=== PATIENT | male | born 1985 ===

== ENCOUNTER 2017-01-09 06:57 | Inpatient (IN) | payer OTHER ==
[~2017-01-09] VITALS: Ht 162.6 cm; Wt 84.4 kg
[2017-01-09] VITALS (17 sets, daily range): BP systolic 113–149; BP diastolic 67–94
[~2017-01-09 06:57] MED LIST: IBUPROFEN600 MG ORAL
[2017-01-09] MEDS ORDERED: Thrombin 5000 units TOPIC ONE (07:38)
[2017-01-09] MEDS ORDERED: Bupivacaine w/Epi 0.5% 30ml Vial INJ ONE (07:39)
[2017-01-09] MEDS ORDERED: Bacitracin 50000 Units Vial ONE ×2 (07:39→10:28)
--- NOTE | 2017-01-09 08:37 | Pre-Procedure Note/Attestation ---
Pre-Procedure Note/Attestation Complete Prior to Procedure Planned Procedure: not applicable Procedure Narrative: For L4-5 Anterior Lumbar Decompression and Fusion. Indications for Procedure Pre-Operative Diagnosis: Disc Herniation with instability L4-5 Attestation I attest that I discussed the nature of the procedure; its benefits; risks and complications; and alternatives (and the risks and benefits of such alternatives ), prior to the procedure, with the patient (or the patient's legal labor relations representative). I attest that, if there was a reasonable possibility of needing a blood transfusion, the patient (or the patient's legal labor relations representative) was given the [facility] standardized written summary, pursuant to the [place] Blood Safety Act ([place] Health and Safety Code # 1645, as amended). I attest that I re-evaluated the patient just prior to the surgery and that there has been no change in the patient's H&P, except as documented below: RUSSELL POWERS Jan 09, 2017 08:37
[2017-01-09] MEDS ORDERED: LR 1000ml ONE (09:00)
[2017-01-09] MEDS ORDERED: Midazolam 2mg/2ml Inj ONE (09:00)
[2017-01-09] MEDS ORDERED: Zemuron 50mg/5ml Inj IV ONE (09:00)
[2017-01-09] MEDS ORDERED: Propofol 10mg/ml 20ml IV ONE (09:00)
[2017-01-09] MEDS ORDERED: fentaNYL 100 mcg/2 mL IV ONE (09:00)
[2017-01-09] MEDS ORDERED: Sterile Water Irrig 1000ml IRRIG ONE (09:00)
[2017-01-09] MEDS ORDERED: Heparin 5000 units/ml inj ONE (09:18)
[2017-01-09] MEDS ORDERED: NS Irrig 1000ml IRRIG ONE (09:30)
[2017-01-09] MEDS ORDERED: LR 1000ml 1,000 ML IVLG SCH (09:50)
--- NOTE | 2017-01-09 09:56 | Immediate Post-Op Evaluation ---
Immediate Post-Op Evalulation Immediate Post-Op Evalulation Procedure: ALIF L4-5 Date of Evaluation: Jan 09, 2017 Time of Evaluation: 11:25 IV Fluids: 1100 Estimated Blood Loss: 75 Blood Pressure Systolic: 137 Blood Pressure Diastolic: 74 Pulse Rate: 93 Respiratory Rate: 17 O2 Sat by Pulse Oximetry: 97 Temperature (Fahrenheit): 98.4 Pain Score (1-10): 0 Nausea: No Vomiting: No Complications No complication Patient Status: reacts, patent, extubated, none Hydration Status: adequate Drug: Ancef Given Within 1 Hr of Incision: Yes Time Given: 09:15 HELEN CASTANEDA M.D. Jan 09, 2017 09:56
--- NOTE | 2017-01-09 09:56 | Anethesia Preoperative Eval ---
Anesthesia Pre-op PMH/ROS General Date of Evaluation: Jan 09, 2017 Time of Evaluation: 08:50 Anesthesiologist: Archie ASA Score: ASA 1 Mallampati Score Class I : Soft palate, uvula, fauces, pillars visible Class II: Soft palate, uvula, fauces visible Class III: Soft palate, base of uvula visible Class IV: Only hard plate visible Mallampati Classification: Class III Surgeon: Jonel Diagnosis: Disc collapse, instabililty L4-5 Surgical Procedure: ALIF L4-5 Family History: no anesthesia problems Allergies: Coded Allergies: No Known Allergies (Unverified , 01/06/17) Medications: see eMAR Past Medical History Cardiovascular: Denies: CAD, HTN, NE, arrhythmia, other, valve dz Pulmonary: Denies: COPD, GAURAV, asthma, other Gastrointestinal/Genitourinary: Denies: CRI, ESRD, GERD, other Neurologic/Psychiatric: Denies: CVA, TIA, dementia, depression/anxiety, other Endocrine: Denies: DM, hypothyroidism, other, steroids HEENT: Denies: [place] (L), [place] (R), cataract (L), cataract (R), glaucoma, other Hematology/Immune: Denies: DVT, anemia, bleeding disorder, other Musculoskeletal/Integumentary: Denies: DDD, DJD, OA, RA, edema, other PMH Narrative: Denies significant PMH PSxH Narrative: Back surgery Anesthesia Pre-op Phys. Exam Physician Exam Last Vital Signs Date Time Temp Pulse Resp B/P Pulse Ox O2 Delivery O2 Flow Rate FiO2 01/09/17 07:40 97.0 69 18 122/69 97 Room Air Constitutional: NAD Neurologic: CN 2-12 intact Cardiovascular: RRR, no M/R/G Respiratory: CTA Gastrointestinal: S/NT/ND Airway Exam Mallampati Score: Class III MO: full ROM: full Teeth: intact Anesthesia Pre-op A/P Labs WNL Studies Pre-op Studies: EKG - SR, RBBB Risk Assessment & Plan Assessment: Healthy male for ALIF Plan: GETA, [place] scope intubation Status Change Before Surgery: No Pre-Antibiotics Drug: Ancef Given Within 1 Hr of Incision: Yes Time Given: 09:15 HELEN CASTANEDA M.D. Jan 09, 2017 09:56
[2017-01-09] MEDS ORDERED: LORazepam Inj 2mg/ml 1ml IV PRN (10:00)
[2017-01-09] MEDS ORDERED: Meperidine 25mg/ml Inj IV PRN (10:00)
[2017-01-09] MEDS ORDERED: Labetalol 5mg/ml 20ml vial IV PRN (10:00)
[2017-01-09] MEDS ORDERED: Hydromorphone 0.5mg/0.5ml inj IVP PRN (10:00)
[2017-01-09] MEDS ORDERED: LR 1000ml 1,000 ML IV SCH (10:00)
--- NOTE | 2017-01-09 11:10 | Operative Note - PDOC ---
Operative Note Operative Note Pre-op Diagnosis: Disc Herniation with instability L4-5 Procedure: L4-5 Anterior Lumbar Decompression and Fusion Post-op Diagnosis: same as pre-op Operative Findings: consistent w/pre-op dx studies Surgeon: Jonel Cook House Supervisor: MICHAEL Powers Additional Surgeons: Catalan - Vascular Access Anesthesiologist: Archie Specimen: yes Complications: none Condition: stable Estimated Blood Loss: minimal Drains: none Implant(s) used?: Yes - Thee InFix device, Medium, 10 mm. 3+3 degree, Thee DBM 5cc. RUSSELL POWERS Jan 09, 2017 11:10
--- NOTE | 2017-01-09 11:21 | 48 Hour Post Anesthesia Eval ---
Post Anesthesia Evaluation Procedure: ALIF L4-5 Date of Evaluation: Jan 09, 2017 Time of Evaluation: 09:15 Blood Pressure Systolic: 139 0: 80 Pulse Rate: 92 Respiratory Rate: 16 O2 Sat by Pulse Oximetry: 97 Airway: patent Nausea: No Vomiting: No Pain Intensity: 5 If pain is > 6 Comment: Patient using QUARTER SEAMER and unable to urinate. Order for straight cath given PRN Hydration Status: adequate Cardiopulmonary Status: Stable Mental Status/LOC: patient returned to baseline Follow-up Care/Observations: As per surgery Post-Anesthesia Complications: No anesthetic complication Follow-up care needed: N/A HELEN CASTANEDA M.D. Jan 09, 2017 11:21
[2017-01-09] MEDS ORDERED: LORazepam 1mg tab ORAL PRN (12:00)
[2017-01-09] MEDS ORDERED: DiphenhydrAMINE 50mg/ml Inj IVP PRN (12:00)
[2017-01-09] MEDS ORDERED: Rate Change PCA 1 Each MISC PRN (12:00)
[2017-01-09] MEDS ORDERED: Naloxone 0.4mg/ml Inj IVP PRN (12:00)
[2017-01-09] MEDS: PCA HYDROmorphone 1mg/ml 30 ML IV PRN (12:08)
[2017-01-09] MEDS ORDERED: Acetaminophen 650 MG SUPP RECTAL PRN (13:00)
[2017-01-09] MEDS: D5 1/2NS w/KCl 20mEq 1,000 ML IV SCH (14:30)
[2017-01-09] MEDS: PCA shift volume MISC SCH ×2 (15:09→23:52)
[2017-01-09] MEDS: ceFAZolin sod 1 GM in D5W 55 ML IV SCH (16:54)
--- NOTE | 2017-01-09 16:58 | Diagnostic Imaging Report ---
Indication: PAIN, intraoperative Technique: Digital intraoperative images Comparison: None Findings: Localizer image demonstrates a surgical tool anterior to what is presumably the L4-5 disc. Subsequent images document placement of a disc prosthesis at L4-5. Impression: Intraoperative imaging, as described
--- NOTE | 2017-01-09 19:28 | Operative Note - Dictated ---
DATE OF OPERATION: 01/09/2017 FACILITY: [facility] SURGEON: Dru Remy M.D. ASSISTANTS: Margo Johnson, vascular approach, Dr. Catalan, co-surgeon. ANESTHESIA: Dr. Núñez, general endotracheal with arterial blood pressure monitoring and use of pulse oximetry. PREOPERATIVE DIAGNOSIS: Discogenic disease at L4-L5 with loss of disc height. Evidence of segmental instability and a left-sided posterior herniation causing severe compression of the sac and exiting nerve root in lateral recess and foramen, marked degeneration of the disc and loss of disc height. POSTOPERATIVE DIAGNOSIS: Discogenic disease at L4-L5 with loss of disc height. Evidence of segmental instability and a left-sided posterior herniation causing severe compression of the sac and exiting nerve root in lateral recess and foramen, marked degeneration of the disc and loss of disc height. OPERATIVE PROCEDURE: Left pararectus retroperitoneal approach to the lumbar spine by Dr. Catalan with vessel mobilization and retraction using a table fixed retractor and reverse tip blades. An anterior annulotomy, nuclear diskectomy and partial vertebrectomy was performed with a bilateral neural foraminotomy and micro neurolysis. An Open-reduction and internal fixation at the 4-5 level was done using an infix cage that was medium end-plate size with 10 mm of height and 3+ 3 degrees of lordosis built into the endplates with fusion with bone protein and autogenous bone harvested during the decompression portion of the procedure. There was pulse oximetry for vascular safety throughout the case. An image intensifier was used as well for cage placement and verification of the level. The patient was prepped and draped supine on the operating table. Bolster was placed in lumbar region. A 3-inch left pararectus incision was made. Incision was carried down through skin and subcutaneous tissue. The rectus was mobilized. The posterior sheath was followed to the retroperitoneal space. The arterial and venous structures anterior to the spine were mobilized and retracted by Dr. Catalan using a table fixed frame and north-south and East-West blades. The center was marked and an anterior annulotomy was done with a #10 blade. The nuclear disc substance and cartilaginous endplate was then sequentially removed from front to back using larger to smaller angled and straight pituitaries, Kerrisons and rongeurs. Distraction was created using a removable Calli tree shaped lordotic distractor, placed side to side, beginning at 8 mm and going to 12 mm. The dissection was carried down to the PLL and posterior disc anulus, which was released with the small angled curettes. The extruded portion of the disc left side of the canal was identified and was retrieved after releasing all the posterior attachments at the posterior vertebral body of L4 and L5. The foramen was cleared and neurolysis performed. The space was templated out to 10 millimeters with a medium size foot print. A 10 mm height infix was then inserted on its handle with 3+ 3 degrees of lordosis in each endplate. Side struts were then tapped into place and the position was checked. The handle was removed. Position was again checked and the cage was locked into place. It was well centered on AP and also on lateral. The space between the endplates was filled with bone protein and autogenous bone. The layers were then closed including the anterior posterior rectus sheath, the subcutaneous and skin. The patient was placed in a bulky compression dressing and returned to recovery room in good condition. Dru Remy M.D. DR: BHARATI JOB#: [id number] CC:
[2017-01-10] VITALS: BP 129/72
[2017-01-10] MEDS: D5 1/2NS w/KCl 20mEq 1,000 ML IV SCH ×3 (00:13→20:00)
[2017-01-10] MEDS: ceFAZolin sod 1 GM in D5W 55 ML IV SCH ×2 (01:20→08:29)
[2017-01-10 04:00] VITALS: BP 122/68
[2017-01-10] MEDS: PCA shift volume MISC SCH ×3 (07:25→23:27)
[2017-01-10 08:09] VITALS: BP 125/70
[2017-01-10] MEDS ORDERED: Influenza Virus Vaccine 0.5ml IM ONE (09:00)
--- NOTE | 2017-01-10 09:32 | History & Physical ---
History and Physical History & Physicial 3-6 HP reviewed care noted d/w RN will follow up TERENCE ACHARYA Jan 10, 2017 09:32
--- NOTE | 2017-01-10 09:37 | General Progress Note ---
Assessment/Plan Assessment/Plan Disc Herniation with instability L4-5 L4-5 Anterior Lumbar Decompression and Fusion PLAN 1. incentive spirometry 2. SCD 3. PT evaluation and therapy 4. Hydration 5. Pain management 6. discharge once stable with outpatient follow up 7. NPO for now Subjective Allergies: Coded Allergies: No Known Allergies (Unverified , 01/06/17) Subjective care noted and reviewed has pain Objective Last 24 Hour Vital Signs Date Time Temp Pulse Resp B/P Pulse Ox O2 Delivery O2 Flow Rate FiO2 01/10/17 08:09 99.1 108 20 125/70 99 Room Air 01/10/17 08:00 18 01/10/17 04:00 98.2 101 18 122/68 99 Nasal Cannula 3.0 01/10/17 04:00 18 01/10/17 00:00 18 01/10/17 00:00 98.4 99 18 129/72 100 Nasal Cannula 3.0 01/09/17 20:00 99.1 102 14 113/86 96 Nasal Cannula 3.0 01/09/17 20:00 16 01/09/17 16:00 16 01/09/17 16:00 99.7 114 16 133/94 98 Nasal Cannula 3.0 01/09/17 14:45 97.5 105 18 126/68 98 Nasal Cannula 3.0 01/09/17 14:15 97.2 100 20 128/67 94 Nasal Cannula 3.0 01/09/17 13:45 97.5 97 20 137/76 96 Nasal Cannula 3.0 01/09/17 13:30 97.7 88 22 133/74 98 Nasal Cannula 3.0 01/09/17 13:15 97.9 96 20 126/68 97 Nasal Cannula 3.0 01/09/17 13:00 98.1 98 22 133/79 99 Nasal Cannula 3.0 01/09/17 13:00 98.6 01/09/17 12:45 97.7 100 22 135/79 100 Nasal Cannula 3.0 01/09/17 12:30 17 01/09/17 12:20 98.6 99 25 149/73 98 Nasal Cannula 3.0 01/09/17 12:15 17 01/09/17 12:08 16 01/09/17 12:05 89 16 144/71 100 Nasal Cannula 3.0 01/09/17 12:04 98.4 01/09/17 12:04 98.4 01/09/17 11:50 96 13 136/80 99 Simple Mask 6.0 01/09/17 11:35 95 14 127/87 99 Simple Mask 6.0 01/09/17 11:23 89 16 139/87 97 Simple Mask 6.0 01/09/17 11:21 92 16 97 01/09/17 11:18 91 16 139/80 97 Simple Mask 6.0 01/09/17 11:15 93 17 97 01/09/17 11:13 98.4 91 17 137/74 97 Simple Mask 6.0 Intake and Output 01/09/17 01/10/17 19:00 07:00 Intake Total 1500 ml Output Total 275 ml 800 ml Balance 1225 ml -800 ml Intake IV Total 1500 ml Output Urine Total 200 ml 800 ml Estimated Blood Loss 75 ml # Voids 2 4 Height (Feet): 5 Height (Inches): 4.00 Weight (Pounds): 186 Objective WDWN NAD clear breath sounds bilaterally without rhonchi or wheeze [id number] without MRG tender no HSM no CCE nonfocal TERENCE ACHARYA Jan 10, 2017 09:37
[2017-01-10] MEDS: PCA HYDROmorphone 1mg/ml 30 ML IV PRN (12:02)
[2017-01-10 12:35] VITALS: BP 111/74
[2017-01-10 16:10] VITALS: BP 123/72
[2017-01-10 20:00] VITALS: BP 126/68
--- NOTE | 2017-01-10 22:28 | Operative Note - Dictated ---
DATE OF OPERATION: 01/09/2017 VASCULAR SURGEON: Robert Catalan M.D. SPINE SURGEON: Dru Remy M.D. PREOPERATIVE DIAGNOSIS: Degenerative disk disease. POSTOPERATIVE DIAGNOSIS: Degenerative disk disease. PROCEDURE PERFORMED: Anterior retroperitoneal exposure of L4-L5 vertebral interspace. INDICATIONS: The patient is a very pleasant gentleman who was seen in my office prior to surgery. He has been scheduled for anterior fusion L5. He has no prior intraabdominal surgery and a history of deep venous thrombosis or bleeding complications with it. The patient has been made aware of the risks of surgery including possibility of blood transfusion, possible severe vascular injury, possible need for blood transfusion, and possible deep venous thrombosis. DESCRIPTION OF FINDINGS: A low vertical midline incision was used. Left retroperitoneal approach was used. There was no peritoneal or ureteral violation. There was no vascular injury. Exposure of L4-L5 was obtained by retractile of the left iliac vessels towards the patient's right. Fluoroscopy was used to confirm the appropriate level. On completion, the peritoneum and ureter were intact. Iliac vessels were intact. There was no vascular injury. Blood loss was approximately 50 to 100 mL. Complications were none. Palpable pedal pulses and normal pulse oximetry on the left leg on completion. DESCRIPTION OF PROCEDURE: The patient was taken to the operating room. General anesthesia was used. IV antibiotics were given. The patient's abdomen prepped and draped. Appropriate time-out procedures were taken. A vertical midline incision made infraumbilically. The anterior fascia was incised longitudinally in the midline. A plane identified posterior to the left rectus abdominis and developed posterolaterally to patient's left. The retroperitoneal space was bluntly entered below the arcuate line. The peritoneum and ureter are mobilized towards the patient's right exposing the left common iliac vessels. Lateral division of the internal oblique fascia was then performed laterally to allow for adequate exposure. The dissection was carried on the left side of the left common iliac vessels. Overlying lymphatics were ligated with vascular clips and divided. The iliolumbar vein was not actually visualized as it appeared to come out at the approximate level L5-S1. The L4 segmental artery and vein were identified and ligated with vascular clips and divided and this allowed us to mobilize the left iliac vessels towards the patient's right exposing anterior surface of the L4-L5. The Omni retractor was set in place and then Kumari blades were actually used to gain lateral exposure. Fluoroscopy was then used to confirm the appropriate level and then instrumentation fusion performed at L4-L5 dictated separately. On completion, retractor gently removed. The peritoneum and the ureter were intact. Iliac vessels were intact. Anterior fascia was closed using #1 PDS in running fashion. Skin and subcutaneous tissue was closed using 3-0 Vicryl and 4-0 Monocryl in a running subcuticular closure technique. ESTIMATED BLOOD LOSS: Less than 100 mL. COMPLICATIONS: None. Robert Catalan M.D. DR: LUCIANO JOB#: [id number] CC: LYNNE
[2017-01-11] VITALS: BP 129/76
[2017-01-11 04:00] VITALS: BP 122/84
[2017-01-11] MEDS: D5 1/2NS w/KCl 20mEq 1,000 ML IV SCH ×2 (05:08→16:38)
[2017-01-11] MEDS: PCA shift volume MISC SCH ×3 (07:07→23:00)
--- NOTE | 2017-01-11 08:23 | General Progress Note ---
Assessment/Plan Assessment/Plan Disc Herniation with instability L4-5 L4-5 Anterior Lumbar Decompression and Fusion PLAN 1. incentive spirometry 2. SCD 3. PT evaluation and therapy 4. Hydration 5. Pain management 6. discharge once stable with outpatient follow up 7. clear liquids 8. remove muhammad Subjective Allergies: Coded Allergies: No Known Allergies (Unverified , 01/06/17) Subjective care noted and reviewed has pain muhammad replaced due to urinary retention passing gas Objective Last 24 Hour Vital Signs Date Time Temp Pulse Resp B/P Pulse Ox O2 Delivery O2 Flow Rate FiO2 01/11/17 08:03 18 01/11/17 04:00 100.0 20 122/84 95 Room Air 01/11/17 04:00 19 01/11/17 00:00 18 01/11/17 00:00 100.4 116 18 129/76 98 Room Air 01/10/17 20:00 98.6 102 19 126/68 100 Nasal Cannula 3.0 01/10/17 20:00 18 01/10/17 16:10 98.6 98 18 123/72 99 Nasal Cannula 3.0 01/10/17 16:00 20 01/10/17 12:35 99.3 94 20 111/74 97 Room Air 01/10/17 12:32 99.3 01/10/17 12:00 20 Intake and Output 01/10/17 01/11/17 19:00 07:00 Intake Total 1100 ml 900 ml Output Total 1000 ml 1000 ml Balance 100 ml -100 ml Intake Oral 100 ml IV Total 1100 ml 800 ml Output Urine Total 1000 ml 1000 ml Height (Feet): 5 Height (Inches): 4.00 Weight (Pounds): 186 Objective WDWN NAD clear breath sounds bilaterally without rhonchi or wheeze [id number] without MRG tenderness improved good BS no HSM no CCE nonfocal TERENCE ACHARYA Jan 11, 2017 08:23
[2017-01-11 08:44] VITALS: BP 130/61
[2017-01-11] MEDS ORDERED: Naloxone 0.4mg/ml Inj IVP PRN ×2 (09:45→12:00)
[2017-01-11] MEDS ORDERED: Rate Change PCA 1 Each MISC PRN (09:45)
[2017-01-11] MEDS ORDERED: DiphenhydrAMINE 50mg/ml Inj IVP PRN (10:00)
[2017-01-11] MEDS ORDERED: PCA HYDROmorphone 1mg/ml 30 ML IV PRN (10:00)
[2017-01-11] MEDS ORDERED: LORazepam 1mg tab ORAL PRN (10:00)
[2017-01-11 12:00] VITALS: BP 122/70
[2017-01-11] MEDS ORDERED: Norco 7.5mg/325mg tab ORAL PRN ×2 (12:00)
[2017-01-11] MEDS ORDERED: HYDROmorphone 1mg/ml Carpuject SUBQ PRN (12:00)
[2017-01-11] MEDS ORDERED: HYDROmorphone 1mg/ml Carpuject IVP PRN (12:00)
[2017-01-11] MEDS ORDERED: Norco 5mg/325mg tab ORAL PRN (12:00)
[2017-01-11 16:00] VITALS: BP 139/86
[2017-01-11 20:00] VITALS: BP 130/83
[2017-01-12] VITALS: BP 129/78
[2017-01-12] MEDS: D5 1/2NS w/KCl 20mEq 1,000 ML IV SCH ×3 (02:35→22:07)
[2017-01-12 04:00] VITALS: BP 125/72
[2017-01-12] MEDS: PCA shift volume MISC SCH ×3 (07:21→23:21)
[2017-01-12 08:00] VITALS: BP 133/63
--- NOTE | 2017-01-12 09:00 | General Progress Note ---
Assessment/Plan Assessment/Plan Disc Herniation with instability L4-5 L4-5 Anterior Lumbar Decompression and Fusion PLAN 1. incentive spirometry 2. SCD 3. PT evaluation and therapy 4. Hydration 5. Pain management 6. discharge once stable with outpatient follow up 7. advance diet 8. muhammad removed Subjective Allergies: Coded Allergies: No Known Allergies (Unverified , 01/06/17) Subjective care noted and reviewed has pain not yet controlled muhammad out tolerating diet Objective Last 24 Hour Vital Signs Date Time Temp Pulse Resp B/P Pulse Ox O2 Delivery O2 Flow Rate FiO2 01/12/17 08:00 18 01/12/17 04:00 100.6 83 21 125/72 99 Nasal Cannula 01/12/17 04:00 18 01/12/17 00:00 98.1 85 19 129/78 99 Nasal Cannula 01/11/17 20:00 16 01/11/17 20:00 98.2 99 18 130/83 93 Nasal Cannula 3.0 01/11/17 16:55 18 01/11/17 16:00 98.2 103 18 139/86 95 Nasal Cannula 2.0 01/11/17 12:00 18 01/11/17 12:00 97.0 98 18 122/70 99 Room Air Intake and Output 01/11/17 01/12/17 19:00 07:00 Intake Total 2560 ml 1650 ml Output Total 1500 ml Balance 1060 ml 1650 ml Intake Oral 1360 ml 600 ml IV Total 1200 ml 1050 ml Output Urine Total 1500 ml # Voids 103 3 Height (Feet): 5 Height (Inches): 4.00 Weight (Pounds): 186 Objective WDWN NAD clear breath sounds bilaterally without rhonchi or wheeze [id number] without MRG good BS no HSM no CCE nonfocal TERENCE ACHARYA Jan 12, 2017 09:00
[2017-01-12 11:15] VITALS: BP 112/76
[2017-01-12 16:06] VITALS: BP 128/93
[2017-01-12 20:38] VITALS: BP 140/85
[2017-01-13] VITALS: BP 134/74
[2017-01-13 04:00] VITALS: BP 123/74
[2017-01-13] MEDS: PCA shift volume MISC SCH (07:02)
[2017-01-13 08:30] VITALS: BP 116/75
[2017-01-13] MEDS ORDERED: Milk of Magnesia 30ml Ud ORAL PRN (08:45)
[2017-01-13] MEDS ORDERED: HYDROmorphone 1mg/ml Carpuject SUBQ PRN (10:00)
[2017-01-13] MEDS ORDERED: HYDROmorphone 1mg/ml Carpuject IVP PRN (10:00)
[2017-01-13] MEDS ORDERED: Norco 5mg/325mg tab ORAL PRN (10:00)
[2017-01-13] MEDS ORDERED: Norco 7.5mg/325mg tab ORAL PRN ×2 (10:00)
[2017-01-13 12:00] VITALS: BP 120/68
[2017-01-13] MEDS ORDERED: NORCO 10-325 T1 EACH ORAL (16:50)
[2017-01-13] MEDS ORDERED: Tubing IV Secondary IV ONE (17:59)
--- NOTE | 2017-01-16 14:25 | Discharge Summary ---
Discharge Summary Hospital Course Date of Admission Jan 09, 2017 at 06:57 Date of Discharge Jan 13, 2017 at 18:00 Admitting Diagnosis Disc Herniation with instability L4-5 Reason for Hospitalization: elective surgery HPI Ugo Dasilva is a 32 year old male who was admitted on Jan 09, 2017 at 06:57 for Disc Collapse Instability L4-[address] Dania Lawrence Procedures s/p L4-5 Anterior Lumbar Decompression and Fusion. on 01/09/[address] Jonel M.D. Hospital Course s/p surgery ALDF L4-5 course of recovery uneventful incentive spirometry, taught how to use SCD, PT evaluation and therapy fall precautions Pain management IVF fro hydration DISCHARGE DIAGNOSIS: Disc Herniation with instability L4-5 s/p L4-5 Anterior Lumbar Decompression and Fusion postoperative pain Discharge Medications Continued Medications: Hydrocodone Bit/Acetaminophen 10-325* ([place] 10-325*) 1 Each Tablet 1 TAB ORAL Q6-8 HOURS PRN for For Pain, #60 TAB 0 Refills PRN PAIN Discontinued Medications: Ibuprofen* (Motrin*) 600 Mg Tablet 800 MG ORAL Q8H PRN for For Pain, #30 TAB 0 Refills Discharge Condition Upon Discharge: stable Discharge Disposition Patient was discharged to Discharge Diagnoses: Discharge Instructions Discharge Instructions Special Instructions I have been assigned to complete a D/C Summary on this account. I was not involved in the patient management Rosita White NP ([place]) Jan 16, 2017 14:25
--- NOTE | 2017-02-17 09:13 | General Progress Note ---
Assessment/Plan Assessment/Plan Disc Herniation with instability L4-5 L4-5 Anterior Lumbar Decompression and Fusion PLAN 1. dc today 2. SCD 3. PT evaluation and therapy 4. post op care 5. Pain management 6. discharge once stable with outpatient follow up 7. advance diet Subjective Date patient seen: Jan 13, 2017 Allergies: Coded Allergies: No Known Allergies (Unverified , 01/06/17) Subjective stable Objective reviewed Height (Feet): 5 Height (Inches): 4.00 Weight (Pounds): 186 Objective WDWN NAD clear breath sounds bilaterally without rhonchi or wheeze [id number] without MRG good BS no HSM no CCE nonfocal TERENCE ACHARYA Feb 17, 2017 09:13
== END 2017-01-13 18:00 | disposition home or self-care (01) | DRG 460 ==
LOC: SDSOVERFLO 06:57 → 3E 12:45
PROC: 0SG00A0 Fusion of Lumbar Vertebral Joint with Interbody Fusion Device, Anterior Approach, Anterior Column, Open Approach (ICD-10-PCS; principal; 2017-01-09 09:00)
PROC: 0SB20ZZ Excision of Lumbar Vertebral Disc, Open Approach (ICD-10-PCS; principal; 2017-01-09 09:00)
DX: M51.16 Intervertebral disc disorders with radiculopathy, lumbar region (principal); G89.18 Other acute postprocedural pain; M53.2X6 Spinal instabilities, lumbar region; R73.9 Hyperglycemia, unspecified; Z87.891 Personal history of nicotine dependence; X58.XXXS Exposure to other specified factors, sequela; Y99.0 Civilian activity done for income or pay
CPT/HCPCS: 36415; 72020; 76001; 86850; 86900; 86901; 87081; 94003; 94150; J2180; J2250; J2405; Q2036